=== PATIENT | female | born 1985 | race Caucasian/White ===

== ENCOUNTER 2021-09-24 06:53 | Day surgery (SDC) | payer BC ==
[~2021-09-24] VITALS: Ht 157.5 cm; Wt 87.1 kg
[~2021-09-24 06:53] MED LIST: ALDOMET; CLOBETASOL0.051 TP; IRON325 M1 PO; JOLIVETTE0.35 MG PO; MOTRIN 800800 MG/TAB PO; PERCOCET 325 MG1 TA2 PO; PRENATAL1 TA1 PO; TRANDATE 100MG100 MG PO
[2021-09-24 07:15] VITALS: BP 135/93; PULSE 89; TEMP 97.4
[2021-09-24] MEDS ORDERED: TOPROL XL 50MG50 MG PO (07:24)
[2021-09-24] MEDS ORDERED: HAILEY 24 FE 11 EACH PO (07:25)
[2021-09-24] MEDS ORDERED: ZYRTEC 10MG10 MG PO (07:25)
[2021-09-24] MEDS ORDERED: ASPIRIN 81M81 MG/TA2 PO (07:25)
[2021-09-24] MEDS ORDERED: [UNRECOGNIZED DRUG - OTHER] PO (07:26)
[2021-09-24] MEDS ORDERED: [UNRECOGNIZED DRUG - OTHER] PO (07:28)
[2021-09-24] MEDS ORDERED: MASON NATURAL1200 MG PO (07:29)
[2021-09-24] MEDS ORDERED: SLO-NIACIN250 MG PO (07:29)
[2021-09-24 08:35] VITALS: BP 109/58; PULSE 74; TEMP 97.7
--- NOTE | 2021-09-24 08:35 | NUR ---
PT TO BAY 3 FROM PROCEDURE ROOM. RECEIVED REPORT FROM CARLOS ANTHONY. VS OBTAINED. PT TOLERATING JUICE AND MUFFIN. ORIENTED PT TO ROOM AND CALL LIGHT. CALL LIGHT WITHIN REACH. WILL CONTINUE TO MONITOR PT.
[2021-09-24 08:50] VITALS: BP 103/92; PULSE 73
--- NOTE | 2021-09-24 08:50 | NUR ---
PT CONTINUES TO TOLERATE JUICE AND MUFFIN. DENIES ANY NEEDS AT THIS TIME. WILL CONTINUE TO MONITOR PT.
[2021-09-24 09:00] VITALS: BP 117/65; PULSE 66
--- NOTE | 2021-09-24 09:00 | NUR ---
VS STABLE. PT READY FOR DISCHARGE. DENIES ANY OTHER NEEDS AT THIS TIME.
--- NOTE | 2021-09-24 09:05 | NUR ---
IV DC'D. PT TOLERATED WELL.
--- NOTE | 2021-09-24 09:10 | NUR ---
DISCHARGE EDUCATION COMPLETED WITH PT AND HER . THEY VERBALIZED UNDERSTANDING OF HOME AND FOLLOW UP CARE. ALL QUESTIONS ANSWERED. DISCHARGE PAPERWORK GIVEN TO PT.
--- NOTE | 2021-09-24 09:20 | NUR ---
PT OFF UNIT PER WHEELCHAIR. DISCHARGE TO HOME WITH PER PERSONAL VEHICLE.
== END 2021-09-24 09:20 | disposition home or self-care (01) ==
LOC: SDCO 06:53
DX: Z12.11 Encounter for screening for malignant neoplasm of colon (principal); D12.4 Benign neoplasm of descending colon; K62.89 Other specified diseases of anus and rectum; K64.0 First degree hemorrhoids; K64.4 Residual hemorrhoidal skin tags; Z80.0 Family history of malignant neoplasm of digestive organs
CPT/HCPCS: J2704; J7030

== ENCOUNTER → 2024-05-02 | Outpatient (CLI) | payer BC ==
[~2024-05-02] MED LIST changes: +ASPIRIN 81M81 MG/TA2 PO; +HAILEY 24 FE 11 EACH PO; +MASON NATURAL1200 MG PO; +SLO-NIACIN250 MG PO; +TOPROL XL 50MG50 MG PO; +ZYRTEC 10MG10 MG PO; +[UNRECOGNIZED DRUG - OTHER] PO; +[UNRECOGNIZED DRUG - OTHER] PO
== END ==
LOC: MC.RAD 13:43
DX: Z12.31 Encounter for screening mammogram for malignant neoplasm of breast (principal); Z12.4 Encounter for screening for malignant neoplasm of cervix